=== PATIENT | male | born 1950 | race Caucasian/White ===

== ENCOUNTER → 2017-11-15 | Outpatient (CLI) | payer OTHER ==
[~2017-11-15] MED LIST: COQ1050 MG PO; FENOFIBRATE160 MG PO; ZETIA10 MG PO
== END ==
LOC: MRI 09:50
DX: M47.27 Other spondylosis with radiculopathy, lumbosacral region (principal); M47.896 Other spondylosis, lumbar region; M79.605 Pain in left leg